=== PATIENT | female | born 1950 | race Caucasian/White ===

== ENCOUNTER 2022-04-09 13:26 | Outpatient (REF) | payer MEDICARE, SELFPAY ==
[2022-04-09 13:52] LABS: Amphetamine Screen Urine Not Detected (Not Detect); Barbiturates, Urine Not Detected (Not Detect); Benzodiazepines Screen Urine Not Detected (Not Detect); Cannabinoid Screen Urine Not Detected (Not Detect); Cocaine Screen Urine Not Detected (Not Detect); Fentanyl, urine Not Detected (Not Detect); Opiate Screen Urine Not Detected (Not Detect); Phencyclidine Screen Urine Not Detected (Not Detect)
== END 2022-04-09 13:27 | disposition home or self-care (01) ==
LOC: HO.PHPLNP 13:26
PROVIDERS: Visit Provider Nurse Practitioner Psychiatric/Mental Health
DX: F33.1 Major depressive disorder, recurrent, moderate (principal)
CPT/HCPCS: 80307

== ENCOUNTER 2022-04-23 09:15 | Outpatient (RCR) | payer MEDICARE, SELFPAY ==
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
[2022-04-09 10:51] VITALS: BMI 50.6
[2022-04-09 10:52] VITALS: BP 126/70; PULSE 76; TEMP 36.9
--- NOTE | 2022-04-09 11:32 | PC.ADMIT ---
Patient self referred to PHP d/t severe depression and anxiety. Patient denied SI or thoughts to harm herself. Reports increased stresses include writing a book and concerned others will not want to use her book of want to publish it. 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 Increased anxiety preventing patient from showering and attending to ADL's. Also reports she is oversleeping and taking long naps during the day and has developed increasing unhealthy eating habits. Patient reports d/t thei increased stress she has been yelling at her . Patient did report her family and friends are supportive. Patient is alert and oriented x4. Calm and cooperative. Appears motivated for treatment. Medications reconciled with patient and patient's pharmacy. Patient reports taking medications as prescribed however stated she forgot to take her evening medications last night and took them this morning. Medication education provided. Patient starting new medication while in the program. Medication education provided on Lamictal, written and verbal information.
--- NOTE | 2022-04-12 13:54 | HO.PHPIOP ---
I met with pt and reviewed treatment plan.
--- NOTE | 2022-04-15 16:11 | HO.PHPIOP ---
Case opened in treatment team.
--- NOTE | 2022-04-16 13:34 | HO.PHPIOP ---
I faxed referral paperwork (completed by pt) to [facility]. I then called them and spoke to Miguel, who transferred me to Tonya Menjivar. I left a message for Tonya Menjivar with info about pt. and this referral.
--- NOTE | 2022-04-16 14:33 | P.PNPSP_ITS ---
Subjective Subjective Date of Service: 04/16/22 Reason For Visit: depression,anxiety Medical Problems Affecting Mental Status: No Interim History: Less anxious, less depressed. Started lamotrigine, no side effects. Continues with over eating, plans to attend overeaters anonymous. Finding groups helpful. Medication Compliance: Yes Side effects from medications: No Attending Groups: Yes Review of Systems Acute medical concerns: No Medical Review of Systems: unchanged Review of Systems Review of Systems Yes all other systems are reviewed and are negative Constitutional: Reports no additional constitutional complaints Mental Status Exam Mental Status Exam Narrative: NAD. Denies SI/HI. Gait slow but steady. Patient Appearance: Appropriate Patient Orientation: Person, Place, Time and Situation Level of Consciousness: Appropriate and Alert Patient Behavior: Appropriate, Cooperative and Good Eye Contact Mood Description: Depressed (less) and Anxious (less) Affect Description: Depressed and Anxious Patient Cognition Impaired: No Ability to Follow Directions: Excellent Speech Pattern: Clear, Appropriate and Coherent Memory Description: Intact Hallucinations: None Delusions: Not Present Thought Process: Intact Thought Content: positive for Intact Depressive Symptoms: Increased Anxiety, Diff. Making Decisions, Changes in Appetite (increased), Sleeping More Than Usual, Loss of Int. in Activity, Significant Weight Gain, Increased Fatigue, Loss of Energy and Difficulty Concentrating Judgement: Fair Diagnostics Vital Signs (24Hr): BMI result Body Mass Index 50.6 Assessment & Plan Assessment & Plan (1) MDD (major depressive disorder), severe: Status: Acute Code(s): F32.2 - Major depressive disorder, single episode, severe without psychotic features Assessment and Plan: Less anxious, less depressed. No SI, no safety concerns. Had questions regarding bipolar disorder. Reports that she spoke with her daughter, who then spoke with daughter's therapist, the daughter and the daughter's therapist post wanted to let this process description writer know that they do not believe she has bipolar disorder. We discussed this in detail. She was informed that she was not provided with a diagnosis of bipolar here, but actually depression and anxiety. It was explained that although lamotrigine is a mood stabilizer, it can also be prescribed to work as an adjunct with depression medications. Patient felt more at ease after hearing this information. Reports that she has had ongoing conflict with her , whom she describes as having untreated anxiety. She states that while participating in groups here, she is learning to detach from him when he escalates, in order to maintain her own level mood stability. (2) Generalized anxiety disorder: Status: Acute Code(s): F41.1 - Generalized anxiety disorder Plan 1. Continue with current [facility] plan of care. 2. Continue with medications as currently prescribed. 3. Follow-up as per protocol. Patient educated on: diagnosis, medication risk/benefits and therapeutic strategies Informed Consent: understands Reason for contiued partial hosp. stay Substantial Risk for: harm to self, inability to function and rapid decompensation Certification I certify that partial hospital treatment is medically necessary due to the symptoms and problems resulting from the patient's mental illness and the failure to treat the patient at the partial hospital level of care would likely result in the patient requiring inpatient psychiatric care which could not be prevented at a less intensive level of care. Total time managing care of this patient today __20__ minutes. Discharge Plan Discharge Attending provider: Jitendra Perry Medications: New lamotrigine 25 mg tablet 25 mg PO DAILY 14 Days Qty: 42 0RF Rx Instructions: Take 25mg daily for 14 days. Then, take 50mg daily for 14 days. No Action multivitamin Tablet 1 tab PO DAILY lisinopril 20 mg tablet 1 tab PO DAILY amlodipine 5 mg tablet 1 tab PO DAILY lorazepam 0.5 mg tablet 1 tab PO BID PRN (Reason: Anxiety) simvastatin 20 mg tablet 1 tab PO BEDTIME montelukast 10 mg tablet 1 tab PO DAILY paroxetine HCl 40 mg tablet 1 tab PO DAILY cholecalciferol (vitamin D3) [Vitamin D3] 50 mcg (2,000 unit) Capsule 50 mcg PO DAILY Stand Alone Forms: Patient Portal Discharge page Patient Education: Lamotrigine (By mouth)
--- NOTE | 2022-04-21 13:53 | HO.PHPIOP ---
I met with pt and reviewed treatment plan
--- NOTE | 2022-04-23 12:38 | P.PNPSP_ITS ---
Subjective Subjective Date of Service: 04/23/22 Reason For Visit: depression,anxiety Medical Problems Affecting Mental Status: No Interim History: Describes mood as ?I feel great ?. Reports anxiety score has gone down to 4. Denies any depression symptoms today. No SI, no safety concerns. Has been taking lamotrigine without side effects. Adopting a dog this afternoon, looking forward to this. Feels stable for discharge from [facility] today. Medication Compliance: Yes Side effects from medications: No Attending Groups: Yes Review of Systems Acute medical concerns: No Medical Review of Systems: unchanged Review of Systems Review of Systems Yes all other systems are reviewed and are negative and Other Constitutional: Reports no additional constitutional complaints Mental Status Exam Mental Status Exam Narrative: NAD. Denies SI/HI. Patient Appearance: Appropriate Patient Orientation: Person, Place, Time and Situation Level of Consciousness: Appropriate and Alert Patient Behavior: Appropriate, Cooperative and Good Eye Contact Mood Description: Appropriate and Anxious (much improved) Affect Description: Happy Patient Cognition Impaired: No Ability to Follow Directions: Excellent Speech Pattern: Clear, Appropriate and Coherent Memory Description: Intact Hallucinations: None Delusions: Not Present Thought Process: Intact Thought Content: positive for Intact Judgement: Good Diagnostics Vital Signs (24Hr): BMI result Body Mass Index 50.6 Assessment & Plan Assessment & Plan (1) MDD (major depressive disorder), severe: Status: Acute Code(s): F32.2 - Major depressive disorder, single episode, severe without psychotic features Assessment and Plan: Describes mood as ?I feel great ?. Reports anxiety score has gone down to 4. Denies any depression symptoms at this time. Plans to attend overeaters anonymous to address eating pattern. Working on setting boundaries with daughter, finding this to be helpful. No SI, no safety concerns. Has been taking lamotrigine without side effects. Currently taking 50 mg daily. Discussed increasing dose to 100 mg daily after completion of 14 days of 50 mg. She was in agreement to continue this, as she is finding it helpful. Prescription will be sent to pharmacy. Adopting a dog this afternoon, looking forward to this. Feels stable for discharge from [facility] today. 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 (2) Generalized anxiety disorder: Status: Acute Code(s): F41.1 - Generalized anxiety disorder Plan 1. Patient appears stable for discharge from [facility] at this time. 2. Lamotrigine 100 mg daily, 30 day supply sent to pharmacy. 3. Patient to follow-up with outpatient providers going forward. Patient educated on: diagnosis, medication risk/benefits and therapeutic strategies Informed Consent: understands Reason for contiued partial hosp. stay Substantial Risk for: stable for discharge Certification I certify that partial hospital treatment is medically necessary due to the symptoms and problems resulting from the patient's mental illness and the failure to treat the patient at the partial hospital level of care would likely result in the patient requiring inpatient psychiatric care which could not be prevented at a less intensive level of care. Total time managing care of this patient today __20__ minutes. Discharge Plan Discharge Attending provider: Jitendra Perry Medications: New lamotrigine 25 mg tablet 25 mg PO DAILY 14 Days Qty: 42 0RF Rx Instructions: Take 25mg daily for 14 days. Then, take 50mg daily for 14 days. lamotrigine 100 mg tablet 100 mg PO DAILY Qty: 30 0RF No Action multivitamin Tablet 1 tab PO DAILY lisinopril 20 mg tablet 1 tab PO DAILY amlodipine 5 mg tablet 1 tab PO DAILY lorazepam 0.5 mg tablet 1 tab PO BID PRN (Reason: Anxiety) simvastatin 20 mg tablet 1 tab PO BEDTIME montelukast 10 mg tablet 1 tab PO DAILY paroxetine HCl 40 mg tablet 1 tab PO DAILY cholecalciferol (vitamin D3) [Vitamin D3] 50 mcg (2,000 unit) Capsule 50 mcg PO DAILY Stand Alone Forms: Patient Portal Discharge page Patient Education: Lamotrigine (By mouth), Depression (DC), Anxiety (GEN)
--- NOTE | 2022-04-23 13:36 | HO.PHPIOP ---
I received a message from Miguel from [employer] and called and spoke to them. They said they needed additional information (financial agreement and release form for PCP) from pt. I gave her these forms, she returned them, and I faxed them to [facility].
== END 2022-04-23 23:59 | disposition home or self-care (01) ==
LOC: HO.PHPA 09:15
PROVIDERS: Visit Provider Psychiatry & Neurology Psychiatry
DX: F32.2 Major depressive disorder, single episode, severe without psychotic features (principal); F41.1 Generalized anxiety disorder; Z79.899 Other long term (current) drug therapy
CPT/HCPCS: 90791; 90853